=== PATIENT | male | born 1975 | race Caucasian/White ===

== ENCOUNTER 2017-02-13 09:00 | Emergency (ER) | payer MEDICAID ==
[2017-02-13 09:06] VITALS: BP 114/85; PULSE 93; RESP 16; TEMP 97.7; O2SAT 97
--- NOTE | 2017-02-13 09:14 | EDPHY ---
H & P Time Seen by Provider: 02/13/17 09:07 HPI/ROS: CHIEF COMPLAINT: Abdominal pain HISTORY OF PRESENT ILLNESS: The patient is a 41-year-old male presenting with epigastric pain for the past 3 months. The patient states "I think I have ulcers ". He reports burning epigastric pain that has been getting worse. He has tried over the counter antacids. His symptoms are worse after eating, but he states he develops severe nausea when he doesn't eat. He feels more fatigued than usual. The patient has a history of epilepsy and is concerned that his stress because of the pain will cause a seizure. The patient is compliant with his seizure medications. REVIEW OF SYSTEMS: A comprehensive 10 point review of systems is otherwise negative aside from elements mentioned in the history of present illness. Past Medical/Surgical History: Epilepsy Social History: Single. Smoking Status: Current every day smoker Physical Exam: General Appearance: Alert, talkative Eyes: Pupils equal and round, no conjunctival pallor ENT, Mouth: Mucous membranes moist Neck: Normal inspection Respiratory: Lungs are clear to auscultation Cardiovascular: Regular rate and rhythm Gastrointestinal: Abdomen is soft, mild epigastric tenderness Neurological: A&O, nonfocal, normal gait Skin: Warm and dry Extremities: Normal inspection Psychiatric: pressured speech Constitutional: Initial Vital Signs Temperature (C) 36.5 C 02/13/17 09:04 Heart Rate 93 02/13/17 09:04 Respiratory Rate 16 02/13/17 09:04 Blood Pressure 114/85 H 02/13/17 09:04 O2 Sat (%) 97 02/13/17 09:04 O2 Delivery Mode Room Air Allergies/Adverse Reactions: No Known Allergies Allergy (Verified 02/13/17 09:03) Home Medications: Medication Instructions Recorded Divalproex ER [Depakote ER] 250 mg PO DAILY 05/11/15 Felbamate 02/13/17 Medical Decision Making ED Course/Re-evaluation: The patient presents with ongoing epigastric pain for the past 3 months. c/w gastritis/PUD. Plan for GI cocktail. 9:26 a.m.: After my evaluation the patient left. He told nursing staff he had to catch a bus. He did not receive a full evaluation, any medications or d/c instructions. Hopefully he will f/u with a PCP. Departure - Departure Disposition: Home, Routine, Self-Care Clinical Impression: Epigastric abdominal pain Condition: Good Instructions: Gastritis (ED), Diet for Stomach Ulcers and Gastritis (ED) Referrals: NONE *PRIMARY CARE P,. [Primary Care Provider] - As per Instructions Report Scribed for: Susan Jade Report Scribed by: Merissa Avila Date of Report: 02/13/17 Time of Report: 09:13 Physician Review and Approval Statement: 02/13/17 09:13 Portions of this note were transcribed by a medical collections representative. I personally performed the history, physical exam, and medical decision-making; and confirmed the accuracy of the information in the transcribed note.
== END 2017-02-13 09:25 | disposition home or self-care (01) ==
DX: R10.13 Epigastric pain (principal); F17.200 Nicotine dependence, unspecified, uncomplicated